=== PATIENT | male | born 1945 | race Caucasian/White ===

== ENCOUNTER → 2017-08-31 | Day surgery (SDC) | payer MEDICARE, OTHER ==
[2017-08-27 11:45] LABS: BASOPHILS # (AUTO) 0.1 (0.0-0.1); BASOPHILS % 0.6 % (0.0-1.0); EOSINOPHILS # (AUTO) 0.3 (0.0-0.4); EOSINOPHILS % 2.8 % (0.0-6.0); HEMATOCRIT 42.9 % (38.2-49.6); HEMOGLOBIN 14.3 g/dL (14.0-18.0); LYMPHOCYTES # (AUTO) 2.5 (1.0-3.2); LYMPHOCYTES % 28.5 % (18.0-39.1); MEAN CORPUSCULAR HEMOGLOBIN 28.9 pg (28-32); MEAN CORPUSCULAR HGB CONC 33.3 g/dL (31-35); MEAN CORPUSCULAR VOLUME 86.7 fL (81-99); MONOCYTES # (AUTO) 0.9 (0.2-0.8); MONOCYTES % 9.6 % (4.4-11.3); NEUTROPHILS # (AUTO) 5.1 (2.1-6.9); NEUTROPHILS % 57.6 % (38.7-80.0); PLATELET COUNT 210 x10e3/uL (140-360); RED BLOOD COUNT 4.95 x10e6/uL (4.3-5.7); RED CELL DISTRIBUTION WIDTH 13.2 % (11.7-14.4)
[2017-08-27 12:12] LABS: ALBUMIN 3.7 g/dL (3.5-5.0); ALBUMIN/GLOBULIN RATIO 1.1 (0.8-2.0); ANION GAP 13.2 mmol/L (8-16); CREATININE, SERUM 1.35 mg/dL (0.72-1.25); POTASSIUM 5.2 mmol/L (3.5-5.1)
[~2017-08-31] MED LIST: FENOFIBRATE145 MG; FENTANYL CITRATE/PF 100MCG/2 ML INJ ONE; GLIMEPIRIDE2 MG PO; HYOSCYAMINE SULFATE 0.5 MG/ML AMP ONE; JANUVIA100 MG PO; MIDAZOLAM HCL 2 MG/2 ML VIAL ONE; PRAVASTATIN SOD20 MG; PROPOFOL IV EMULSION 10 MG/ML 50 ML VIAL ONE
--- NOTE | 2017-08-31 17:37 | Operative Report ---
DATE OF PROCEDURE: August 31, 2017 REFERRING PHYSICIAN: Dr. Merrick Rhoades. PROCEDURES PERFORMED: 1. Esophagogastroduodenoscopy with biopsies. 2. Colonoscopy with polypectomy. INDICATIONS FOR ESOPHAGOGASTRODUODENOSCOPY: Dysphagia. INDICATIONS FOR COLONOSCOPY: Colorectal cancer screening. MEDICATION: Patient was done under MAC. Please see anesthesiologist's note. PROCEDURE: With patient in the left lateral decubitus position, the flexible fiberoptic Olympus gastroscope was introduced into the esophagus under direct visualization without any difficulty. A semi-circumferential mass extending approximately 5 cm from the GE junction was noted, and biopsies were obtained and sent for frozen section as well as for permanent section. The scope was then advanced with ease into the stomach, and mucosa overlying the antrum and the body revealed some patchy areas of erythema. The pylorus was of normal contour and shape, was intubated with ease, and the scope was advanced all the way to the 2nd portion of the duodenum. The scope was then withdrawn slowly. Mucosa overlying the proximal 2nd portion and the duodenal bulb overall grossly unremarkable. The scope was then withdrawn back into the stomach and retroflexed, and the cardia appeared somewhat plump, but there was no obvious involvement by tumor. Biopsies were not obtained. The scope was then straightened out. The scope was subsequently withdrawn. Patient tolerated the procedure well. IMPRESSION: 1. Esophageal mass, friable, semi-circumferential, extending approximately 5 cm from the gastroesophageal junction. Biopsies obtained for frozen section as well as for permanent section. 2. Gastritis, mild. PLAN: Follow up histology. Patient will need a CT scan of the chest as well as the abdomen. Oncology and general surgical opinions will be obtained. The patient was then an turned around, and after adequate lubrication of the anal canal, a flexible fiberoptic Olympus colonoscope was inserted into the rectum with ease and advanced all the way to the cecum. The prep overall was suboptimal with retained stools in the colon. The scope was then withdrawn slowly. Mucosa overlying the cecum grossly appeared to be within normal limits. An approximately 1 cm sessile polyp was noted in the ileocecal valve, and that was removed per snare electrocautery. The rest of the ascending and the transverse grossly appeared to be within normal limits. Diverticular disease was noted to involve the distal descending and the sigmoid. One polyp was snared from the descending colon. The rectum grossly appeared to be within normal limits. The scope was then retroflexed into the distal rectum and small internal hemorrhoids were noted, none of which was actively bleeding. The scope was then straightened out. It was subsequently withdrawn. Patient tolerated procedure well. IMPRESSION: 1. Suboptimal prep. 2. Ileocecal valve polyp snared. 3. Descending colon polyp snared. 4. Diverticulosis. 5. Internal hemorrhoids, none actively bleeding. PLAN: Follow up histology. Patient will need a followup colonoscopy in 3 years. Job#: [id number] cc:MERRICK RHOADES MD
== END | disposition home or self-care (01) ==
LOC: OR 11:21
PROVIDERS: ATTEND Internal Medicine Gastroenterology
DX: Z12.11 Encounter for screening for malignant neoplasm of colon (principal); C15.5 Malignant neoplasm of lower third of esophagus; D12.4 Benign neoplasm of descending colon; D12.0 Benign neoplasm of cecum; K29.70 Gastritis, unspecified, without bleeding; K57.30 Diverticulosis of large intestine without perforation or abscess without bleeding; K64.8 Other hemorrhoids; E11.9 Type 2 diabetes mellitus without complications; N20.0 Calculus of kidney; R06.02 Shortness of breath; R00.1 Bradycardia, unspecified; E78.5 Hyperlipidemia, unspecified; Z01.810 Encounter for preprocedural cardiovascular examination; Z01.812 Encounter for preprocedural laboratory examination; Z88.0 Allergy status to penicillin; Z88.6 Allergy status to analgesic agent; Z79.84 Long term (current) use of oral hypoglycemic drugs; Z86.19 Personal history of other infectious and parasitic diseases; Z87.891 Personal history of nicotine dependence
CPT/HCPCS: 36415 ×2; 43239; 45385; 80053; 82948; 85025; 88305; 88331; 93005; J1980; J2250

== ENCOUNTER → 2017-09-05 | Outpatient (CLI) | payer MEDICARE ==
[~2017-09-05] MED LIST changes: -FENTANYL CITRATE/PF 100MCG/2 ML INJ ONE; -HYOSCYAMINE SULFATE 0.5 MG/ML AMP ONE; +IOPAMIDOL 370 MG/ML 200 ML INFUS..BTL INJ ONE; -MIDAZOLAM HCL 2 MG/2 ML VIAL ONE; -PROPOFOL IV EMULSION 10 MG/ML 50 ML VIAL ONE; +SODIUM CHLORIDE 0.9% 50ML 50 ML ONE
[2017-09-05 16:27] LABS: CREATININE, SERUM 1.21 mg/dL (0.72-1.25)
--- NOTE | 2017-09-05 18:42 | Diagnostic Imaging Report ---
EXAM: CT Chest, and Abdomen WITH contrast INDICATION: Dysphagia. Esophageal tumor. Colon cancer. COMPARISON: None. TECHNIQUE: Chest, abdomen and pelvis were scanned utilizing a multidetector helical scanner from the lung apex to the iliac crests after administration of IV contrast. Coronal and sagittal reformations were obtained. Routine protocol was performed. Scan was performed when during portal venous phase. IV CONTRAST: 100 cc Isovue 300 ORAL CONTRAST: Water RADIATION DOSE: Total DLP: 79.69 mGy*cm Estimated effective dose: (DLP x 0.015 x size factor) mSv COMPLICATIONS: None FINDINGS: LINES and TUBES: None. LUNGS AND AIRWAYS: Moderate to severe bilateral emphysematous changes most markedly involving the upper lobes. There is an azygos fissure and lobe. 0.8 cm noncalcified nodule in the right middle lobe on image 74 series 4. Lobulated noncalcified nodule less than mass in the posterior superior segment of the right lower lobe on image 82 series 4. Diffuse coarsening of the pulmonary interstitium associated with mild central bronchiectasis bilaterally in the lower lobes may reflect senescent fibrosis. PLEURA: The pleural spaces are clear. HEART AND MEDIASTINUM: The thyroid gland is normal. No mediastinal, hilar or axillary lymphadenopathy. The heart is normal in size.. There is no pericardial effusion. The pulmonary trunk measures 3.9 cm in diameter, mildly dilated. HEPATOBILIARY: Peripherally enhancing lesion in the segment 6 of the liver measuring 2.9 cm on image 79 series 2 concerning for metastasis. No biliary ductal dilation. GALLBLADDER: No radio-opaque stones or sludge. No wall thickening. SPLEEN: No splenomegaly. PANCREAS: No focal masses or ductal dilatation. ADRENALS: No adrenal nodules KIDNEYS/URETERS: Kidneys enhance symmetrically. No hydronephrosis. No cystic or solid mass lesions. No stones. GI TRACT: No abnormal distention, wall thickening, or evidence of bowel obstruction. Descending colon diverticula without diverticulitis. Appendix is normal. Small, 2.3 cm diverticulum of the second portion of the duodenum. Diffuse thickening of the distal esophagus and gastric cardia which likely represents known tumor. PELVIC ORGANS/BLADDER: Unremarkable. LYMPH NODES: Mildly prominent gastrohepatic ligament lymph node measures 1.1 cm in short axis on images 60 series 2. An enlarged lymph nodes inferior to the gastric cardia measures 1.8 cm on image 65 series 2, demonstrate central necrosis and surrounding fat stranding. VESSELS: Soft plaque along the right wall of the SMA on image 72 series 2. Accessory left renal artery. Calcification of the aorta without aneurysmal dilatation. PERITONEUM / RETROPERITONEUM: No free air or fluid. BONES: There are degenerative changes in the lumbar spine. SOFT TISSUES: Unremarkable. IMPRESSION: 1. Thickening of the distal esophagus and gastric cardia likely represents known tumor. 2. 2.9 cm enhancing lesion in segment 6 of the liver concerning for metastasis. 3. Enlarged gastrohepatic ligament and perigastric lymph node consistent with metastatic lymphadenopathy. 4. 2.4 cm lobulated mass/nodule in the posterior right lower lobe may represent a primary lung neoplasm or metastatic disease. 0.8 cm nodule in the right middle lobe may represent metastatic focus. 5. Pulmonary emphysema. Signed by: Dr. Iliana Negrete M.D. on 09/05/2017 6:38 PM
== END ==
LOC: CT 15:53
PROVIDERS: ATTEND Internal Medicine Gastroenterology
DX: R13.10 Dysphagia, unspecified (principal); C18.9 Malignant neoplasm of colon, unspecified
CPT/HCPCS: 36415; 71260; 74160; 82565; 84520; Q9967